=== PATIENT | female | born 1980 | race Caucasian/White ===

== ENCOUNTER → 2016-08-06 | Outpatient (REF) | payer BC ==
[2016-08-06 12:39] LABS: BASOPHILS % (AUTO) 1 % (0-2); EOSINOPHILS # (AUTO) 0.1 10^3uL; EOSINOPHILS % (AUTO) 3 % (0-4); LYMPHOCYTES # (AUTO) 1.9 X10^3; MEAN CORPUSCULAR HGB CONC 33.5 g/dL (31.0-37.0); MEAN CORPUSCULAR VOLUME 90 FL (80-100); MEAN PLATELET VOLUME 11.2 FL (6.0-9.5); MONOCYTES # (AUTO) 0.4 X10^3; MONOCYTES % (AUTO) 7 % (3-11); NEUTROPHILS # (AUTO) 3.2 X10^3; NEUTROPHILS % (AUTO) 56 % (51-67); PLATELET COUNT 217 10^3uL (150-450); WHITE BLOOD COUNT 5.69 10^3uL (4.0-11.0)
== END ==
LOC: LAB 12:23
PROVIDERS: ATTEND Family Medicine
DX: D50.9 Iron deficiency anemia, unspecified (principal)
CPT/HCPCS: 82728; 85025

== ENCOUNTER → 2016-11-15 | Outpatient (CLI) | payer BC ==
--- NOTE | 2016-11-15 16:01 | Diagnostic Imaging Report ---
INDICATION: Right hip pain. Chronic pain x6 years increased over the past six months. No known injury. TECHNIQUE: Two views of the right hip. CORRELATION STUDY: None. FINDINGS: Joint space is maintained with femoral head and acetabular relationship unremarkable. There does appear to be perhaps very slight sclerotic and early cystic change about the acetabular roof. The bony trabecular pattern of the proximal femur appears unremarkable. IMPRESSION: 1. Negative for acute bony abnormality of the right hip. There may be perhaps early degenerative changes about the acetabulum. Dictated by: Dictated on workstation # [id number]
== END ==
LOC: RAD 10:25
PROVIDERS: ATTEND Family Medicine
DX: M25.551 Pain in right hip (principal)
CPT/HCPCS: 73502

== ENCOUNTER → 2016-11-15 | Outpatient (REF) | payer BC | LOC: LAB 10:30 | PROVIDERS: ATTEND Family Medicine | DX: M25.551 Pain in right hip (principal) | CPT/HCPCS: 85652; 86140 ==